=== PATIENT | male | born 1970 | race Caucasian/White ===

== ENCOUNTER 2019-07-02 15:39 | Emergency (ER) | payer OTHER ==
[~2019-07-02] VITALS: Ht 157.5 cm; Wt 72.6 kg
[2019-07-02 15:54] VITALS: BP 133/81
[2019-07-02] MEDS ORDERED: cefTRIAXone 1,000 MG in LIDOCAINE MPF 1% - 5 mL VIAL 2.1 ML IM ONE (16:55)
[2019-07-02] MEDS ORDERED: LIDOCAINE MPF 1% - 5 mL VIAL 10 ML ONE (17:17)
[2019-07-02 18:10] VITALS: BP 133/81
== END 2019-07-02 18:11 | disposition home or self-care (01) ==
LOC: MED 15:39
DX: L02.414 Cutaneous abscess of left upper limb (principal); F11.90 Opioid use, unspecified, uncomplicated; F17.210 Nicotine dependence, cigarettes, uncomplicated; Z86.19 Personal history of other infectious and parasitic diseases; Z88.0 Allergy status to penicillin
CPT/HCPCS: 10060; 81002; 90471; 90715; 96372; 99283; J0696; J2001